=== PATIENT | female | born 1980 | race Caucasian/White ===

== ENCOUNTER 2018-05-06 15:47 | Emergency (ER) | payer OTHER ==
[2018-05-06] MEDS ORDERED: Take Home: Amoxicillin/Clavulanate K 875-125 MG Tab, 2 Tab Pack PO ONE (16:38)
[2018-05-06] MEDS ORDERED: Amoxicillin/Clavulanate K 875-125 MG Tab PO ONE (16:38)
--- NOTE | 2018-05-06 16:46 | EDM.PDOC ---
ED HPI GENERAL MEDICAL PROBLEM - General Chief Complaint: Bite:Animal, Insect Stated Complaint: dog bite Time Seen by Provider: 05/06/18 16:37 Source of Information: Reports: Patient History Limitations: Reports: No Limitations - History of Present Illness INITIAL COMMENTS - FREE TEXT/NARRATIVE: Patient reports a dog bite to the middle finger of her left hand. 2 known dogs that are up to date on their vaccinations. Was trying to break up the two dogs fighting. No other complaints. Onset: Today, Sudden Location: Reports: Upper Extremity, Left - Related Data Allergies Allergy/AdvReac Type Severity Reaction Status Date / Time No Known Allergies Allergy Verified 08/16/14 06:44 ED ROS GENERAL - Review of Systems Review Of Systems: See Below Constitutional: Reports: No Symptoms HEENT: Reports: No Symptoms Respiratory: Reports: No Symptoms Cardiovascular: Reports: No Symptoms Endocrine: Reports: No Symptoms GI/Abdominal: Reports: No Symptoms : Reports: No Symptoms Musculoskeletal: Reports: No Symptoms Skin: Reports: Wound (4 small puncture wounds to middle left finger) Neurological: Reports: No Symptoms Psychiatric: Reports: No Symptoms Hematologic/Lymphatic: Reports: No Symptoms Immunologic: Reports: No Symptoms ED EXAM, ANIMAL BITE - Physical Exam Exam: See Below Exam Limited By: No Limitations General Appearance: Alert, WD/WN, No Apparent Distress Extremities: Normal Inspection, Normal Range of Motion, Non-Tender, Normal Capillary Refill, No Pedal Edema Skin Exam: Other (4 punctures to left middle finger. Finger cleaned with chlorhexadine scrub, dressed, augmentin given) Departure - Departure Time of Disposition: 16:51 Disposition: Home, Self-Care 01 Condition: Good Clinical Impression: Dog bite, Dog bite of finger - Discharge Information *PRESCRIPTION DRUG MONITORING PROGRAM REVIEWED*: Not Applicable *COPY OF PRESCRIPTION DRUG MONITORING REPORT IN PATIENT MARKUS: Not Applicable Instructions: Animal Bite, [id number], Amoxicillin; Clavulanic Acid tablets, Probiotics Referrals: Elaine León DO [Primary Care Provider] - Additional Instructions: Plan 1. Take the augmentin 875/125 mg twice daily for 5 days 2. Eat yogurt or take probiotics to prevent a bacterial infection of the intestines due to antibiotic use 3. Stay well hydrated 4. Follow up with primary as needed for additional symptom management 5. In the future do not try to break up fights with dogs 6. Please call if you have any additional questions or concerns - Problem List & Annotations (1) Dog bite of finger SNOMED Code(s): 760647984 Code(s): S61.259A - OPEN BITE OF UNSP FINGER WITHOUT DAMAGE TO NAIL, INIT ENCNTR; W54.0XXA - BITTEN BY DOG, INITIAL ENCOUNTER Status: Acute Priority: Low Qualifiers: Encounter type: initial encounter Qualified Code(s): S61.259A - Open bite of unspecified finger without damage to nail, initial encounter; W54.0XXA - Bitten by dog, initial encounter - Problem List Review Problem List Initiated/Reviewed/Updated: Yes - Assessment/Plan Assessment:: dog bite of left middle finger Plan: Plan 1. Take the augmentin 875/125 mg twice daily for 5 days 2. Eat yogurt or take probiotics to prevent a bacterial infection of the intestines due to antibiotic use 3. Stay well hydrated 4. Follow up with primary as needed for additional symptom management 5. In the future do not try to break up fights with dogs 6. Please call if you have any additional questions or concerns
[2018-05-06 16:58] VITALS: BP 148/92
== END 2018-05-06 16:56 | disposition home or self-care (01) ==
LOC: VM.ED 15:47
DX: S61.253A Open bite of left middle finger without damage to nail, initial encounter (principal); W54.0XXA Bitten by dog, initial encounter
CPT/HCPCS: 99283; A9270-GY

== ENCOUNTER 2019-10-07 13:22 | Emergency (ER) | payer OTHER ==
[2019-10-07] MEDS ORDERED: Sodium Chloride 0.9% 10 ML Syringe FLUSH PRN (14:00)
[2019-10-07] MEDS ORDERED: Take Home: Albuterol 18 GM Inhaler, 1 Inhaler Pack INH PRN (14:11)
--- NOTE | 2019-10-07 14:17 | EDM.PDOC ---
ED HPI GENERAL MEDICAL PROBLEM - General Stated Complaint: NOT FEELING WELL Time Seen by Provider: 10/07/19 13:59 Source of Information: Reports: Patient - History of Present Illness INITIAL COMMENTS - FREE TEXT/NARRATIVE: Mirna is a 39 y/o female who presents to the ER with complaints of overall malaise. Early Tuesday Am she developed a fever and cough along with some SOB. She was exposed to COVID prior to this. She apparently had had 2 COVID tests this past week due to her sx, with the most recent being Tuesday and the results were negative. Her fever has been has high as 102. Today she is much more tired and more SOB. She describes the feeling like "something is sitting on her chest". She has a dry, hacky cough and is just very achy. She has taken some OTC ibuprofen, but nothing else. Generalized Pain Score (Numeric/FACES): 0 - Related Data Allergies Allergy/AdvReac Type Severity Reaction Status Date / Time No Known Allergies Allergy Verified 08/16/14 06:44 Home Meds: Home Meds Citalopram [Citalopram HBr] 40 mg PO DAILY 10/07/19 [History] Insulin Glarg,Human.Rec.Analog [Lantus] 20 unit SUBCUT DAILY 10/07/19 [History] Linagliptin [Tradjenta] 5 mg PO DAILY 10/07/19 [History] Metoprolol Succinate 25 mg PO DAILY 10/07/19 [History] atorvaSTATin [Lipitor] 20 mg PO DAILY 10/07/19 [History] Review of Systems - Review of Systems Review Of Systems: See Below Constitutional: Reports: Chills, Fever Eyes: Reports: No Symptoms Ears: Reports: No Symptoms Nose: Reports: Congestion Mouth/Throat: Reports: No Symptoms Respiratory: Reports: Shortness of Breath, Cough, Other (Chest heaviness) Cardiovascular: Reports: No Symptoms GI/Abdominal: Reports: Decreased Appetite Genitourinary: Reports: No Symptoms Musculoskeletal: Reports: Other (body aches) Skin: Reports: No Symptoms Neurological: Reports: No Symptoms Psychiatric: Reports: No Symptoms ED EXAM, GENERAL - Physical Exam Exam: See Below Exam Limited By: No Limitations General Appearance: Alert, WD/WN, No Apparent Distress (Adult female) Ears: Normal External Exam, Normal Canal, Hearing Grossly Normal, Normal TMs Nose: Normal Inspection, Normal Mucosa Throat/Mouth: Normal Lips, Normal Oropharynx, Normal Voice, Inflammation (mild erythema to pharynx) Head: Atraumatic, Normocephalic Neck: Normal Inspection, Supple, Non-Tender Respiratory/Chest: No Respiratory Distress, Chest Non-Tender, Decreased Breath Sounds Cardiovascular: Normal Peripheral Pulses, Regular Rate, Rhythm, No Murmur GI/Abdominal: Normal Bowel Sounds, Soft, Non-Tender, Other (Obese) (Female) Exam: Deferred Rectal (Female) Exam: Deferred Back Exam: Normal Inspection Extremities: Normal Inspection, Normal Capillary Refill Neurological: Alert, Oriented, CN II-XII Intact, Normal Cognition, Normal Gait Psychiatric: Normal Affect, Normal Mood Skin Exam: Warm, Dry, Intact, Normal Color Lymphatic: No Adenopathy EKG INTERPRETATION EKG Date: 10/07/19 Time: 16:32 Rhythm: NSR Rate (Beats/Min): 96 [place]: Normal P-Wave: Present QRS: Normal ST-T: Normal QT: Normal Comparison: NA - No Prior EKG Course - Vital Signs Text/Narrative:: The patient was seen by the CARDIAC CATH LAB RADIOLOGY TECHNOLOGIST. COVID test was ordered initially, in addition to other labs. CXR and EKG ordered. She as given Albuterol HFA inhaler 2 puffs x 1 for the SOB. 1440 Notified that patient is COVID+. Unable to get IV started, other labs pending. Will give patient a liter of NS and Methylprednisiolone 125mg IVP when access obtained. Patient was nauseated and given Zofran ODT 4 mg po. Patient's resp rate 16 and her sats were dropping to 86-87% on RA so oxygen applied. Lab reviewed. CTA obtained due to comorbidities and +COVID along with hypoxemia. Patient did report feeling a bit better following IV fluids [address] Rosales the supervisor nutritional yeast physician here to admit patient to Acute Care. Dr Rosales advises patient be sent to [place]. Amber Candelario contact and case discussed with Dr Freeman. Amber advises at this time to admit patient here and consider transfer only if she deteriorates further while admitted. 1720 Dr Rosales called back and she is coming to ER 1730 Dr Rosales arrives and contacts [facility] and gets patient accepted by Dr Dao in [place]. Plan transfer to [place] by [facility]. Patient remained stable on 2 liters of oxygen here in [place]. Last Recorded V/S: Last Vital Signs Temp 36.8 C 10/07/19 13:22 Pulse 106 H 10/07/19 13:22 Resp 18 10/07/19 13:22 BP 123/77 10/07/19 13:22 Pulse Ox 93 L 10/07/19 13:22 - Orders/Labs/Meds Orders: Active Orders 24 hr Category Date Time Status EKG Documentation Completion [RC] STAT Care 10/07/19 14:08 Active CXR [Chest 2V] [CR] Stat Exams 10/07/19 14:10 Ordered Albuterol [Take Home: Albuterol 18 GM, 1 INH Pack] Med 10/07/19 14:11 Active 1 packet INH Q4H PRN Sodium Chloride 0.9% [Saline Flush] Med 10/07/19 14:00 Active 10 ml FLUSH ASDIRECTED PRN Saline Lock Insert [OM.PC] Stat Oth 10/07/19 14:00 Ordered Medication Orders Albuterol (Take Home: Albuterol 18 Gm, 1 Inh Pack) 1 packet INH Q4H PRN PRN Reason: Shortness of Breath Last Admin: 10/07/19 14:18 Dose: 2 puff Documented by: BIETAMY Sodium Chloride (Saline Flush) 10 ml FLUSH ASDIRECTED PRN PRN Reason: Keep Vein Open Labs: Laboratory Tests 10/07/19 10/07/19 10/07/19 Range/Units 13:48 15:12 15:12 WBC 7.3 (4.0-10.0) x10^3/uL RBC 4.77 (4.00-5.50) x10^6/uL Hgb 13.0 (12.0-16.0) g/dL Hct 40.9 (33.0-47.0) % MCV 85.7 (78.0-93.0) fL MCH 27.3 (26.0-32.0) pg MCHC 31.8 L (32.0-36.0) g/dL RDW Coeff of Trinh 15.1 H (10.0-15.0) % Plt Count 201 (130-400) x10^3/uL Neut % (Auto) 75.9 (50.0-80.0) % Lymph % (Auto) 14.0 L (25.0-50.0) % Glynn % (Auto) 9.8 (2.0-11.0) % Eos % (Auto) 0.0 (0.0-4.0) % Baso % (Auto) 0.3 (0.2-1.2) % D-Dimer, Quantitative (<=0.58) mg/LFEU Sodium 135 L (136-145) mmol/L Potassium 3.4 L (3.5-5.1) mmol/L Chloride 98 (98-107) mmol/L Carbon Dioxide 28 (21-32) mmol/L Anion Gap 12.4 (10-20) mmol/L BUN 13 (7-18) mg/dL Creatinine 0.6 (0.55-1.02) mg/dL Est Cr Clr Drug Dosing TNP Estimated GFR (MDRD) > 60 Glucose 172 H (74-106) mg/dL Calcium 8.3 L (8.5-10.1) mg/dL Corrected Calcium 9.02 (8.5-10.1) mg/dL Total Bilirubin 0.6 (0.2-1.0) mg/dL AST 43 H (15-37) U/L ALT 38 (14-59) U/L Alkaline Phosphatase 74 (46-116) U/L Troponin I (<=0.056) ng/mL Total Protein 7.2 (6.4-8.2) g/dL Albumin 3.1 L (3.4-5.0) g/dL Globulin 4.1 Albumin/Globulin Ratio 0.76 COVID-19 (KIRSTIN) Positive H (NEGATIVE) 10/07/19 10/07/19 Range/Units 15:12 15:12 WBC (4.0-10.0) x10^3/uL RBC (4.00-5.50) x10^6/uL Hgb (12.0-16.0) g/dL Hct (33.0-47.0) % MCV (78.0-93.0) fL MCH (26.0-32.0) pg MCHC (32.0-36.0) g/dL RDW Coeff of Trinh (10.0-15.0) % Plt Count (130-400) x10^3/uL Neut % (Auto) (50.0-80.0) % Lymph % (Auto) (25.0-50.0) % Glynn % (Auto) (2.0-11.0) % Eos % (Auto) (0.0-4.0) % Baso % (Auto) (0.2-1.2) % D-Dimer, Quantitative 0.55 (<=0.58) mg/LFEU Sodium (136-145) mmol/L Potassium (3.5-5.1) mmol/L Chloride (98-107) mmol/L Carbon Dioxide (21-32) mmol/L Anion Gap (10-20) mmol/L BUN (7-18) mg/dL Creatinine (0.55-1.02) mg/dL Est Cr Clr Drug Dosing Estimated GFR (MDRD) Glucose (74-106) mg/dL Calcium (8.5-10.1) mg/dL Corrected Calcium (8.5-10.1) mg/dL Total Bilirubin (0.2-1.0) mg/dL AST (15-37) U/L ALT (14-59) U/L Alkaline Phosphatase (46-116) U/L Troponin I < 0.017 (<=0.056) ng/mL Total Protein (6.4-8.2) g/dL Albumin (3.4-5.0) g/dL Globulin Albumin/Globulin Ratio COVID-19 (KIRSTIN) (NEGATIVE) Meds: Medications Generic Name Dose Route Start Last Admin Trade Name Freq PRN Reason Stop Dose Admin Albuterol 1 packet 10/07/19 14:11 10/07/19 14:18 Take Home: Albuterol 18 Gm, 1 Inh Pack INH 2 puff Q4H PRN Administration Shortness of Breath Sodium Chloride 10 ml 10/07/19 14:00 Saline Flush FLUSH ASDIRECTED PRN Keep Vein Open Discontinued Medications Generic Name Dose Route Start Last Admin Trade Name Freq PRN Reason Stop Dose Admin Sodium Chloride 1,000 mls @ 999 mls/hr 10/07/19 14:57 10/07/19 15:14 Normal Saline IV 10/07/19 15:57 999 mls/hr ONETIME ONE Administration Iopamidol 100 ml 10/07/19 16:41 10/07/19 16:42 Isovue-300 (61%) IVPUSH 10/07/19 16:42 100 ml ONETIME ONE Administration Methylprednisolone Sodium Succinate 125 mg 10/07/19 14:57 10/07/19 15:15 Solu-Medrol IVPUSH 10/07/19 14:58 125 mg ONETIME ONE Administration Ondansetron HCl Confirm 10/07/19 14:56 10/07/19 14:55 Zofran Odt Administered 10/07/19 14:57 4 mg Dose Administration 4 mg .ROUTE .STK-MED ONE Ondansetron HCl 4 mg 10/07/19 14:57 10/07/19 17:40 Zofran Odt PO 10/07/19 14:58 Not Given ONETIME ONE - Radiology Interpretation Free Text/Narrative:: CTA=peripheral groundglass densities noted bilaterally, consistent with Atypical pneumonia (See final report) Departure - Departure Time of Disposition: 17:30 Disposition: DC/Tfer to [facility] 02 Preliminary Cause of *Q: Sepsis & Multi System Organ Failure Condition: Good Clinical Impression: COVID-19, Hypoxemia requiring supplemental oxygen, Pneumonia due to COVID-19 vi mychal T2DM (type 2 diabetes mellitus) Qualifiers: Diabetes mellitus certified nursing assistant instructor insulin use: with certified nursing assistant instructor use - Discharge Information Instructions: COVID-19, Prevent the Spread of COVID-19 if You Are Sick - [facility] Referrals: Elaine León, DO [Primary Care Provider] - Forms: Interfacility Transfer EMTALA Additional Instructions: -Transfer to via [facility]. Sepsis Event Note (ED) - Focused Exam Vital Signs: Vital Signs Temp Pulse Resp BP Pulse Ox 10/07/19 13:22 36.8 C 106 H 18 123/77 93 L - My Orders Last 24 Hours: My Active Orders 10/07/19 14:00 Sodium Chloride 0.9% [Saline Flush] 10 ml FLUSH ASDIRECTED PRN Saline Lock Insert [OM.PC] Stat 10/07/19 14:08 EKG Documentation Completion [RC] STAT 10/07/19 14:10 CXR [Chest 2V] [CR] Stat 10/07/19 14:11 Albuterol [Take Home: Albuterol 18 GM, 1 INH Pack] 1 packet INH Q4H PRN - Assessment/Plan Last 24 Hours: My Active Orders 10/07/19 14:00 Sodium Chloride 0.9% [Saline Flush] 10 ml FLUSH ASDIRECTED PRN Saline Lock Insert [OM.PC] Stat 10/07/19 14:08 EKG Documentation Completion [RC] STAT 10/07/19 14:10 CXR [Chest 2V] [CR] Stat 10/07/19 14:11 Albuterol [Take Home: Albuterol 18 GM, 1 INH Pack] 1 packet INH Q4H PRN
[2019-10-07] MEDS ORDERED: Ondansetron 4 MG Tab.DIS ONE (14:56)
[2019-10-07] MEDS ORDERED: methylPREDNISolone Sodium Succinate 125 MG/2 ML SDV IVPUSH ONE (14:57)
[2019-10-07] MEDS ORDERED: Ondansetron 4 MG Tab.DIS PO ONE (14:57)
[2019-10-07] MEDS ORDERED: Sodium Chloride 0.9% 1,000 ML IV ONE (14:57)
[2019-10-07 15:44] LABS: CHLORIDE,CL 98 mmol/L (98-107); SODIUM,NA 135 mmol/L (136-145)
[2019-10-07 15:45] LABS: ANION GAP 12.4 mmol/L (10-20)
[2019-10-07] MEDS ORDERED: Iopamidol 612 MG/ML 100 ML Bottle IVPUSH ONE (16:41)
--- NOTE | 2019-10-07 16:57 | CT ---
[id number] CT/CT Chest W IV EXAM: CT Chest W IV CLINICAL DATA: POSITIVE COVID, SHORTNESS OF BREATH, REQUIRING COMPARISON: None. FINDINGS: LUNGS: Peripheral predominant groundglass densities scattered throughout the lungs, upper lobe predominant. No airspace consolidation. No pneumothorax or pleural effusion. No suspicious pulmonary nodules or masses. No pneumothorax or effusion. No endobronchial lesions. HEART AND GREAT VESSELS: Unremarkable. MEDIASTINUM AND LYMPHATICS: There are multiple prominent mediastinal and hilar lymph nodes none of which are pathologically enlarged by CT size criteria. UPPER ABDOMINAL ORGANS: The gallbladder is surgically absent. BONES: No fracture or osseous lesion. IMPRESSION: 1. Numerous peripheral based groundglass densities scattered throughout the lungs bilaterally, upper lobe predominant. Findings are consistent with atypical pneumonia as can be seen with viral pneumonia and consistent with patient's diagnosis of COVID. Bairon Hartman DO 10/07/19 [id number] Thank you for allowing us to participate in the care of your patient.
[2019-10-07 18:19] VITALS: BP 147/91; PULSE 109
== END 2019-10-07 18:45 | disposition short-term general hospital (02) ==
LOC: VM.ED 13:22
DX: U07.1 COVID-19 (principal); J12.89 Other viral pneumonia; E11.9 Type 2 diabetes mellitus without complications; Z79.4 Long term (current) use of insulin
CPT/HCPCS: 36415; 71260; 80053; 84484; 85025; 85379; 93005; 93010; 96374; 99284-GF; 99285-25; A9270-GY; J2930; J7030; Q9967; U0002